=== PATIENT | male | born 1990 | race Caucasian/White ===

== ENCOUNTER 2025-01-28 16:25 | Emergency (ER) | payer BC, SELFPAY ==
--- OUTSIDE RECORDS SUMMARY | 2025-01-28 16:27 | XMS_ITS | Clinical Summary ---
Author Organization [facility] Address [address] [address] Phone Care Team Providers Care Accounts Payable Manager Name Role Phone Elsewhere, Pcp Primary Care Provider Unavailabl e Allergies Active Allergy Reactions Criticality Noted Date Comments Environmental 04/09/2012 Seasonal Medications No known medications Active Problems No known active problems Resolved Problems Problem Noted Date Diagnosed Date Resolved Date Right ankle pain 01/20/2024 03/29/2024 Muscle weakness 01/20/2024 03/29/2024 Sprain of anterior talofibul ar ligament of right ankle 01/20/2024 03/29/2024 Social History Tobacco Use Types Packs/Day Years Used Date Smoking Tobacco: Never Passive Smoke Exposure: Never Smokeless Tobacco: Never Tobacco Cessation:Counseling Given: Not Answered Alcohol Use Standard Drinks/Week Comments Not Asked 0 (1 standard drink = 0.6 oz pur e alcohol) PHQ-2 Answer Date Recorded PHQ-2 Total 0 01/08/2024 Sex and Gender Information Value Date Recorded Sex Assigned at Not on file 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 Gender Identity Not on file Sexual Orientation Not on file Obstetrics History Last Filed Vital Signs Vital Sign Reading Time Taken Comments Blood Pressure 117/70 02/10/2024 10:02 AM CDT Pulse 68 02/10/2024 10:02 AM CDT Temperature 37.9 C (100.3 F) 02/10/2024 10:02 AM CDT Respiratory Rate 16 02/10/2024 10:02 AM CDT Oxygen Saturation 99% 02/10/2024 10:02 AM CDT Inhaled Oxygen Concentration - - Weight 63.5 kg (140 lb) 01/08/2024 12:21 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 Height 170.2 cm (5' 7) 01/08/2024 12:21 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 Body Mass Index 21.93 01/08/2024 12:21 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 MEDICA FULLY INSURED Care Teams Accounts Payable Manager Relationship Specialty Start Date End Date Elsewhere, Pcp PCP - General 04/09/12
[2025-01-28 16:37] VITALS: BP 123/63; PULSE 81; RESP 18; TEMP 37.7; O2SAT 99; BMI 25.7
[2025-01-28 17:37] LABS: PCR FLU A Negative PCR FLU A (Negative); PCR FLU B Negative PCR FLU B (Negative); PCR RSV Negative PCR RSV (Negative); SARS PCR* POSITIVE SARS-CoV-2 (Negative)
--- NOTE | 2025-01-28 17:53 | ED.GENADULT ---
HPI - General Adult General Chief complaint: Headache/Migraine Stated complaint: Fever 101 Time Seen by Provider: 01/28/25 17:31 Source: patient Mode of arrival: ambulatory Limitations: no limitations History of Present Illness HPI narrative: 34-year-old male, generally healthy and takes no medications, presents today with 1 day of fevers and achiness. Mild cough present. Denies any recent traveling or sick contacts. Denies any chest or abdominal pain. Has a headache. Decreased appetite today and decreased energy. 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 Related Data Home Medications ?Medication ?Instructions ?Recorded ?Confirmed No Known Home Medications 01/28/25 01/28/25 Allergies Allergy/AdvReac Type Severity Reaction Status Date / Time No Known Drug Allergies Allergy Verified 01/09/25 19:13 Review of Systems Status of ROS: Reports: 10 or more systems reviewed and unremarkable except as noted in History and below Exam Narrative: Exam Narrative: Well-nourished well-developed patient in no acute distress. Alert and oriented. Answers questions appropriately. Mood and affect are appropriate. Thoughts are goal oriented and rational. No tangential or magical thinking noted. Patient speaks in full sentences without needing to catch His breath. HEENT: Normocephalic atraumatic. Pupils are equally round reactive to light. Extraocular muscles are intact. Conjunctivae are moist without any icterus noted. Moist mucous membranes. Posterior pharynx is normal. Neck is soft without any lymphadenopathy or thyromegaly. No masses are appreciated. TMs are clear bilaterally. Cardiovascular: Heart is regular rate and rhythm S1 and S2 are present without any murmurs. Lungs: Clear to auscultation bilaterally no wheezes rhonchi or rales are appreciated. Patient takes deep breaths without any discomfort. Abdomen: Soft and nontender nondistended with normal bowel sounds. Skin: Well perfused without any obvious rashes. Const: Vital Signs, click to edit/add: Vital Signs - 24 hr 01/28/25 16:37 Temperature 99.9 F H Pulse Rate [Pulse Oximeter] 81 Respiratory Rate 18 Blood Pressure [Ri ght Upper Arm] 123/63 Pulse Oximetry 99 Oxygen Delivery Me thod Room Air Course Course ED Course: Triple swab is positive for COVID-19. Vital Signs Vital signs: Initial Vital Signs Temperature 99.9 F H 01/28/25 16:37 Temperature Source Temporal Artery Scan 01/28/25 16:37 Pulse Rate 81 01/28/25 16:37 Respiratory Rate 18 01/28/25 16:37 Blood Pressure 123/63 01/28/25 16:37 Blood Pressure Mean 83 01/28/25 16:37 Pulse Oximetry 99 01/28/25 16:37 Oxygen Delivery Method Room Air 01/28/25 16:37 Vital Signs Temperature 99.9 F H 01/28/25 16:37 Pulse Rate 81 01/28/25 16:37 Respiratory Rate 18 01/28/25 16:37 Blood Pressure 123/63 01/28/25 16:37 Pulse Oximetry 99 01/28/25 16:37 Oxygen Delivery Method Room Air 01/28/25 16:37 Temperature 99.9 F H 01/28/25 16:37 Pulse Rate 81 01/28/25 16:37 Respiratory Rate 18 01/28/25 16:37 Blood Pressure 123/63 01/28/25 16:37 Pulse Oximetry 99 01/28/25 16:37 Oxygen Delivery Method Room Air 01/28/25 16:37 Medical Decision Making MDM Narrative Medical decision making narrative: 34-year-old male with COVID-19. As the patient is otherwise healthy we discussed the risks and benefits of Paxlovid and decided not to use it at this time. We discussed symptomatic treatment and reasons for follow-up. Lab Data Lab results reviewed: Yes I reviewed the patient's lab results Labs: Lab Results 01/28/25 Range/Units 16:41 SARS-CoV-2 (PCR) POSITIVE SARS-CoV-2 A (Negative) Influenza Type A (PCR) Negative PCR FLU A (Negative) Influenza Type B (PCR) Negative PCR FLU B (Negative) RSV (PCR) Negative PCR RSV (Negative) Discharge Plan Discharge Clinical Impression: COVID-19 Patient Disposition: Home, Self-Care Condition: Stable Instructions: COVID-19 (Coronavirus Disease 2019) (ED), COVID-19: Slow the Coronavirus Spread (ED) Prescriptions: No Action No Known Home Medications Follow Up/Referrals: Provider,Not a Local [Primary Care Provider] - Stand Alone Forms: [employer] Info Instructions
--- OUTSIDE RECORDS SUMMARY | 2025-01-28 18:00 | XMS_ITS | Clinical Summary ---
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
== END 2025-01-28 18:11 | disposition home or self-care (01) ==
LOC: ED 17:59
PROVIDERS: Emergency Provider Family Medicine
DX: U07.1 COVID-19 (principal); R50.9 Fever, unspecified; R05.9 Cough, unspecified
CPT/HCPCS: 87631; 99282; 99283; 99284